=== PATIENT | female | born 1945 | race Caucasian/White ===

== ENCOUNTER → 2017-12-25 | Outpatient (CLI) | payer OTHER | LOC: RAD 06:14 → SPEECH 06:14 → RAD 12:24 | DX: R13.12 Dysphagia, oropharyngeal phase (principal); R13.19 Other dysphagia; K21.9 Gastro-esophageal reflux disease without esophagitis; J30.9 Allergic rhinitis, unspecified; R49.0 Dysphonia; M35.00 Sjogren syndrome, unspecified; R25.1 Tremor, unspecified ==

== ENCOUNTER → 2018-01-07 | Outpatient (CLI) | payer OTHER ==
--- NOTE | ~2018-01-07 | 2DMMODE ---
[facility] [place] [address] 2 D/M-MODE ECHOCARDIOGRAM Name: ZANEFILIBERTO Room #: REG COUNTS INCLUDE 234 BEDS AT THE [facility]#: [id number] Admission: 01/07/18 Attend Phys: Panda Sarkar MD Discharge: Date of : 41 Date of Service: 01/07/18 1336 Report #: [id number] THIS REPORT FOR: //name// APPROVED REPORT Study performed: 01/07/2018 09:57:41 EXAM: Comprehensive 2D, Doppler, and color-flow Echocardiogram Patient Location: Out-Patient Status: routine BSA: 1.67 BP: 134/72 mmHg Rhythm: NSR Other Information Study Quality: Good Indications Dyspnea Palpitations Chest Pain Hx: HLD 2D Dimensions RVDd: 33.42 mm LVEF(%): 64.01 (>50%) IVSd: 11.52 (7-11mm) LVOT Diam: 21.27 (18-24mm) LVDd: 33.68 mm PWd: 10.95 (7-11mm) Ascending Ao: 29.73 (22-36mm) LVDs: 22.26 (25-40mm) Aortic Root: 26.67 mm IVC: 18.00 mm Fernandez's LVEF: 64.01 % Volumes Left Atrial Volume (Systole) Single Plane 4CH: 31.84 mL Single Plane 2CH: 35.72 mL LA ESV Index: 22.00 mL/m2 Aortic Valve AoV Peak [place].: 1.72 m/s AO Peak Gr.: 11.83 mmHg LVOT Max P.47 mmHg LVOT Max V: 1.17 m/s BLANKA Vmax: 2.41 cm2 [facility] [place] [address] 2 D/M-MODE ECHOCARDIOGRAM Name: ZANEFILIBERTO Room #: [facility]#: [id number] Admission: 01/07/18 Attend Phys: Panda Sarkar MD Discharge: Date of : 41 Date of Service: 01/07/18 1336 Report #: [id number] Mitral Valve E/A Ratio: 0.9 MV Decel. Time: 263.28 ms MV E Max [place].: 0.89 m/s MV A [place].: 1.04 m/s MV PHT: 76.35 ms IVRT: 55.36 ms Pulmonary Valve PV Peak [place].: 0.83 m/s PV Peak Gr.: 2.73 mmHg Pulmonary Vein P Vein S: 0.68 m/s P Vein A: 0.31 m/s P Vein D: 0.42 m/s P Vein A Dur.: 133.8 msec P Vein S/D Ratio: 1.62 Tricuspid Valve TR Peak [place].: 2.30 m/s RAP Estimate: 5.00 mmHg TR Peak Gr.: 21.07 mmHg PA Pressure: 26.00 mmHg Left Ventricle The left ventricle is normal size. There is normal LV segmental wall motion. There is normal left ventricular wall thickness. The left ventricular systolic function is normal. The left ventricular ejection fraction is within the normal range. LVEF is 55-60%. Mild diastolic dysfunction is present (impaired relaxation pattern). Right Ventricle The right ventricle is normal size. The right ventricular systolic function is normal. Atria The left atrium size is normal. Right atrium is at the upper limits of normal. Aortic Valve Aortic valve is trileaflet. Round 1.0cm mass adherent to non-coronary cusp leaflet, primarily on aortic side of valve. Differential considerations include myxoma, papillary fibroma, fibroma, or vegetation. No aortic regurgitation is present. There is no aortic valvular stenosis. Mitral Valve Mild mitral annular calcification. Trace mitral regurgitation. No [facility] [address] [place] [address] 2 D/M-MODE ECHOCARDIOGRAM Name: FILIBERTO DEGROOT Room #: REG CL [facility]#: [id number] Admission: 01/07/18 Attend Phys: Panda Sarkar MD Discharge: Date of : 41 Date of Service: 01/07/18 1336 Report #: [id number] evidence of mitral valve stenosis. Tricuspid Valve The tricuspid valve is normal in structure. Mild tricuspid regurgitation. Estimated PAP 26 mmHg. Pulmonic Valve The pulmonary valve is normal in structure. Mild pulmonic regurgitation. Great Vessels The aortic root is normal in size. The ascending aorta is normal in size. IVC is normal in size and collapses >50% with inspiration. Pericardium There is no pericardial effusion. Critical Notification Physician Notified <Conclusion> The left ventricular systolic function is normal. LVEF is 55-60%. Mild diastolic dysfunction Aortic valve is trileaflet. Round 1.0cm mass adherent to non-coronary cusp leaflet, primarily on aorta side of valve. Differential considerations include myxoma, papillary fibroma, fibroma, or vegetation. No aortic regurgitation or stenosis. Mild mitral annular calcification. Trace mitral regurgitation. Mild tricuspid regurgitation. Estimated pulmonary artery pressure of 26 mmHg. There is no pericardial effusion. <ELECTRONICALLY SIGNED> By: Elvis Garcia MD, FACC 01/07/18 1336 35 133 Elvis Garcia MD, FACC /INF
== END ==
LOC: NUC 07:47
DX: R06.00 Dyspnea, unspecified (principal)

== ENCOUNTER → 2018-10-19 | Outpatient (CLI) | payer OTHER ==
--- NOTE | 2018-10-19 10:12 | 2DMMODE ---
[facility] [place] [address] 2 D/M-MODE ECHOCARDIOGRAM Name: FILIBERTO DEGROOT Room #: REG [facility]#: [id number] ������������� Admission: 10/19/18 ������������� Attend Phys: Panda Sarkar MD Discharge: ��� ������������� ��� Date of : 41 Date of Service: 10/19/18 1012 �� Report #: [id number] �������� ��������������������������������������������[id number] THIS REPORT FOR: //name// APPROVED REPORT Study performed: 10/19/2018 09:18:53 EXAM: Comprehensive 2D, Doppler, and color-flow Echocardiogram Patient Location: Out-Patient Status: routine BSA: 1.64 HR: 53 bpm BP: 156/86 mmHg Rhythm: NSR Other Information Study Quality: Good Indications Palpitations. Hx: AVR 01/2018. 2D Dimensions RVDd: 28.44 mm IVSd: 8.95 (7-11mm) LVDd: 43.05 mm PWd: 8.54 (7-11mm) Ascending Ao: 30.37 (22-36mm) LVDs: 26.97 (25-40mm) Aortic Root: 28.41 mm Volumes Left Atrial Volume (Systole) Single Plane 4CH: 38.89 mL Single Plane 2CH: 42.44 mL LA ESV Index: 26.00 mL/m2 Aortic Valve AoV Peak [place].: 2.94 m/s AO Peak Gr.: 34.53 mmHg LVOT Max P.93 mmHg AO Mean Gr.: 19.83 mmHg AO V2 Mean: 2.13 m/s LVOT Max V: 1.22 m/s AO V2 VTI: 71.67 cm Mitral Valve E/A Ratio: 1.1 MV Decel. Time: 240.99 ms [facility] [place] [address] [place] [address] 2 D/M-MODE ECHOCARDIOGRAM Name: FILIBERTO DEGROOT Room #: REG [facility]#: [id number] ������������� Admission: 10/19/18 ������������� Attend Phys: Panda Sarkar MD Discharge: ��� ������������� ��� Date of : 41 Date of Service: 10/19/18 1012 �� Report #: [id number] �������� ��������������������������������������������[id number] MV E Max [place].: 1.00 m/s MV A [place].: 0.87 m/s MV PHT: 69.89 ms IVRT: 83.04 ms Pulmonary Valve PV Peak [place].: 0.90 m/s PV Peak Gr.: 3.22 mmHg Pulmonary Vein P Vein S: 0.80 m/s P Vein A: 0.36 m/s P Vein D: 0.57 m/s P Vein A Dur.: 147.6 msec P Vein S/D Ratio: 1.40 Tricuspid Valve TR Peak [place].: 2.00 m/s RAP Estimate: 5.00 mmHg TR Peak Gr.: 16.00 mmHg PA Pressure: 21.00 mmHg Left Ventricle The left ventricle is normal size. There is normal LV segmental wall motion. There is normal left ventricular wall thickness. Left ventricular systolic function is normal. LVEF is 65%. Moderate diastolic dysfunction is present (pseudonormal filling). Right Ventricle The right ventricle is normal size. The right ventricular systolic function is normal. Atria The left atrium size is normal. The right atrium size is normal. Aortic Valve #21 [employer] bioprosthetic aortic valve is present. Peak pressure gradient of 35mmHg and a mean gradient of 20mmHg. Trace aortic regurgitation. Mitral Valve The mitral valve is normal in structure. Mild mitral annular calcification. There is no mitral valve regurgitation noted. No evidence of mitral valve stenosis. Tricuspid Valve The tricuspid valve is normal in structure. Mild tricuspid regurgitation. Estimated PAP is 20-25mmHg. [address] [address] 2 D/M-MODE ECHOCARDIOGRAM Name: FILIBERTO DEGROOT Room #: REG CL [facility]#: [id number] ������������� Admission: 10/19/18 ������������� Attend Phys: Panda Sarkar MD Discharge: ��� ������������� ��� Date of : 41 Date of Service: 10/19/18 1012 �� Report #: [id number] �������� ��������������������������������������������[id number] Pulmonic Valve The pulmonary valve is normal in structure. Mild pulmonic regurgitation. Great Vessels The aortic root is normal in size. The ascending aorta is normal in size. IVC is normal in size and collapses >50% with inspiration. Pericardium There is no pericardial effusion. <Conclusion> The left ventricle is normal size. There is normal left ventricular wall thickness. Left ventricular systolic function is normal. Moderate diastolic dysfunction is present (pseudonormal filling). The right ventricle is normal size. The left atrium size is normal. #21 [employer] bioprosthetic aortic valve is present. Peak pressure gradient of 35mmHg and a mean gradient of 20mmHg. Trace aortic regurgitation. Mild mitral annular calcification. There is no mitral valve regurgitation noted. Mild tricuspid regurgitation. Estimated PAP is 20-25mmHg. ��������������������������������������������� <ELECTRONICALLY SIGNED> ���������������������������������������� By: Panda Sarkar MD ��������������������������������������������� 10/19/18 1012 1012 1012 Panda Sarkar MD /INF
== END ==
LOC: CV 08:50
DX: I07.1 Rheumatic tricuspid insufficiency (principal); Z88.5 Allergy status to narcotic agent; Z88.8 Allergy status to other drugs, medicaments and biological substances

== ENCOUNTER → 2019-01-22 | Outpatient (CLI) | payer OTHER | LOC: ULTRA 12:00 | DX: R60.0 Localized edema (principal); M79.602 Pain in left arm ==

== ENCOUNTER → 2019-08-12 | Outpatient (CLI) | payer OTHER | LOC: NUC 10:08 | DX: R07.89 Other chest pain (principal); R55 Syncope and collapse; I73.9 Peripheral vascular disease, unspecified; E78.00 Pure hypercholesterolemia, unspecified; Z88.8 Allergy status to other drugs, medicaments and biological substances; Z79.82 Long term (current) use of aspirin ==

== ENCOUNTER → 2019-09-22 | Outpatient (CLI) | payer OTHER | LOC: RAD 09:29 | DX: K31.7 Polyp of stomach and duodenum (principal); K21.9 Gastro-esophageal reflux disease without esophagitis; K85.90 Acute pancreatitis without necrosis or infection, unspecified ==

== ENCOUNTER → 2019-10-26 | Outpatient (CLI) | payer OTHER | LOC: SJCVCIMAG 09:20 | DX: I45.10 Unspecified right bundle-branch block (principal); I37.1 Nonrheumatic pulmonary valve insufficiency; I10 Essential (primary) hypertension; E78.00 Pure hypercholesterolemia, unspecified; K21.9 Gastro-esophageal reflux disease without esophagitis; Z95.2 Presence of prosthetic heart valve; Z86.73 Personal history of transient ischemic attack (TIA), and cerebral infarction without residual deficits; Z79.82 Long term (current) use of aspirin; Z79.899 Other long term (current) drug therapy; Z88.5 Allergy status to narcotic agent; Z88.8 Allergy status to other drugs, medicaments and biological substances ==

== ENCOUNTER → 2020-02-15 | Outpatient (CLI) | payer OTHER | LOC: SJCVCIMAG 10:39 | PROVIDERS: ATTEND Internal Medicine Cardiovascular Disease | DX: I45.10 Unspecified right bundle-branch block (principal); I49.49 Other premature depolarization; I10 Essential (primary) hypertension; E78.00 Pure hypercholesterolemia, unspecified; K21.9 Gastro-esophageal reflux disease without esophagitis; Z95.2 Presence of prosthetic heart valve; Z90.49 Acquired absence of other specified parts of digestive tract; Z90.710 Acquired absence of both cervix and uterus; Z79.899 Other long term (current) drug therapy ==

== ENCOUNTER → 2020-08-29 | Outpatient (CLI) | payer OTHER | LOC: SJCVC 14:59 | PROVIDERS: ATTEND Internal Medicine Cardiovascular Disease | DX: I45.10 Unspecified right bundle-branch block (principal); I48.91 Unspecified atrial fibrillation; K21.9 Gastro-esophageal reflux disease without esophagitis; E78.00 Pure hypercholesterolemia, unspecified; R00.1 Bradycardia, unspecified; I10 Essential (primary) hypertension; R60.9 Edema, unspecified; Z79.82 Long term (current) use of aspirin; Z79.899 Other long term (current) drug therapy; Z86.73 Personal history of transient ischemic attack (TIA), and cerebral infarction without residual deficits; Z95.2 Presence of prosthetic heart valve; Z88.5 Allergy status to narcotic agent; Z88.8 Allergy status to other drugs, medicaments and biological substances ==

== ENCOUNTER → 2021-02-22 | Outpatient (CLI) | payer OTHER | LOC: SPEC 08:32 → SJCVCIMAG 09:56 | PROVIDERS: ATTEND Internal Medicine Cardiovascular Disease | DX: I45.10 Unspecified right bundle-branch block (principal); R00.1 Bradycardia, unspecified; E78.00 Pure hypercholesterolemia, unspecified; R60.9 Edema, unspecified; I10 Essential (primary) hypertension; K21.9 Gastro-esophageal reflux disease without esophagitis; Z90.49 Acquired absence of other specified parts of digestive tract; Z90.710 Acquired absence of both cervix and uterus; Z95.2 Presence of prosthetic heart valve; Z88.5 Allergy status to narcotic agent; Z88.8 Allergy status to other drugs, medicaments and biological substances; Z79.82 Long term (current) use of aspirin; Z79.899 Other long term (current) drug therapy; Z86.73 Personal history of transient ischemic attack (TIA), and cerebral infarction without residual deficits; Z82.49 Family history of ischemic heart disease and other diseases of the circulatory system ==

== ENCOUNTER → 2021-07-31 | Outpatient (CLI) | payer OTHER | LOC: SJCVC 13:57 | PROVIDERS: ATTEND Internal Medicine Cardiovascular Disease | DX: I45.10 Unspecified right bundle-branch block (principal); R60.9 Edema, unspecified; I10 Essential (primary) hypertension; R06.00 Dyspnea, unspecified; I48.91 Unspecified atrial fibrillation; K21.9 Gastro-esophageal reflux disease without esophagitis; R53.83 Other fatigue; E78.00 Pure hypercholesterolemia, unspecified; R00.1 Bradycardia, unspecified; Z88.8 Allergy status to other drugs, medicaments and biological substances; Z79.82 Long term (current) use of aspirin; Z79.899 Other long term (current) drug therapy; Z82.49 Family history of ischemic heart disease and other diseases of the circulatory system ==

== ENCOUNTER → 2021-08-07 | Outpatient (CLI) | payer OTHER ==
--- NOTE | 2021-08-07 15:09 | 2DMMODE ---
[facility] [place] [address] 2 D/M-MODE ECHOCARDIOGRAM Name: FILIBERTO DEGROOT Room #: REG [facility]#: [id number] Admission: 08/07/21 Attend Phys: Panda Sarkar MD Discharge: Date of : 41 Report #: [id number] THIS REPORT FOR: cc: Amparo Lopez MD, Michelle R. MD Park, Jin S. MD ~ APPROVED REPORT Study performed: 08/07/2021 14:01:12 EXAM: Comprehensive 2D, Doppler, and color-flow Echocardiogram Patient Location: Out-Patient Room #: 1 Status: routine BSA: 1.75 HR: 55 bpm BP: 124/72 mmHg Rhythm: Bradycardia Other Information Study Quality: Good Indications Dyspnea AVR 2D Dimensions RVDd: 34.76 mm IVSd: 9.07 (7-11mm) LVOT Diam: 18.84 (18-24mm) LVDd: 41.90 mm PWd: 8.85 (7-11mm) Ascending Ao: 23.94 (22-36mm) LVDs: 25.66 (25-40mm) Left Atrium: 36.95 (27-40mm) Aortic Root: 26.23 mm IVC: 16.00 mm Volumes Left Atrial Volume (Systole) Single Plane 4CH: 49.38 mL Single Plane 2CH: 52.00 mL LA ESV Index: 32.00 mL/m2 Aortic Valve AoV Peak [place].: 3.30 m/s AO Peak Gr.: 43.53 mmHg LVOT Max P.52 mmHg AO Mean Gr.: 21.14 mmHg LVOT Mean P.64 mmHg [facility] [address] [place] [address] 2 D/M-MODE ECHOCARDIOGRAM Name: FILIBERTO DEGROOT Room #: REG CL [facility]#: [id number] Admission: 08/07/21 Attend Phys: Panda Sarkar MD Discharge: Date of : 41 Report #: [id number] AO V2 Mean: 2.18 m/s LVOT Max V: 1.17 m/s AO V2 VTI: 80.29 cm LVOT Mean V: 0.74 m/s BLANKA (VTI): 1.04 cm2 LVOT V1 VTI: 29.98 cm BLANKA Vmax: 0.99 cm2 SV (LVOT): 83.57 mL Mitral Valve E/A Ratio: 1.2 MV Decel. Time: 189.31 ms MV E Max [place].: 1.27 m/s MV A [place].: 1.08 m/s MV PHT: 54.90 ms IVRT: 92.27 ms Pulmonary Valve PV Peak [place].: 1.23 m/s PV Peak Gr.: 6.09 mmHg Pulmonary Vein P Vein S: 0.74 m/s P Vein A: 0.25 m/s P Vein D: 0.57 m/s P Vein A Dur.: 120.0 msec P Vein S/D Ratio: 1.30 Tricuspid Valve TR Peak [place].: 2.51 m/s TR Peak Gr.: 25.26 mmHg PA Pressure: 30.00 mmHg Left Ventricle The left ventricle is normal size. There is normal LV segmental wall motion. There is normal left ventricular wall thickness. The left ventricular systolic function is normal. The left ventricular ejection fraction is within the normal range. LVEF is 60-65%. Grade II - pseudonormal filling dynamics. Right Ventricle The right ventricle is normal size. The right ventricular systolic function is normal. Atria The left atrium size is normal. The right atrium size is normal. Aortic Valve Bioprosthetic #21 aortic valve is present. Peak gradient 37mmHg, mean gradient 18mmHg. No aortic regurgitation is present. [address] [address] 2 D/M-MODE ECHOCARDIOGRAM Name: FILIBERTO DEGROOT Room #: REG CL [facility]#: [id number] Admission: 08/07/21 Attend Phys: Panda Sarkar MD Discharge: Date of : 41 Report #: [id number] Mitral Valve The mitral valve is normal in structure. Trace mitral regurgitation. Tricuspid Valve The tricuspid valve is normal in structure. There is trace to mild tricuspid regurgitation. Estimated PAP 30 mmHg. Pulmonic Valve The pulmonary valve is normal in structure. There is no pulmonic valvular regurgitation. Great Vessels The aortic root is normal in size. IVC is normal in size and collapses >50% with inspiration. Pericardium There is no pericardial effusion. <Conclusion> The left ventricle is normal size. There is normal left ventricular wall thickness. The left ventricular systolic function is normal. Grade II - pseudonormal filling dynamics. The right ventricle is normal size. The left atrium size is normal. Bioprosthetic #21 aortic valve is present. Peak gradient 37mmHg, mean gradient 18mmHg. Trace mitral regurgitation. There is trace to mild tricuspid regurgitation. Estimated PAP 30 mmHg. <ELECTRONICALLY SIGNED> By: Panda Sarkar MD 08/07/21 1509 1509 1509 Panda Sarkar MD /INF
== END ==
LOC: CV 09:59
PROVIDERS: ATTEND Internal Medicine Cardiovascular Disease
DX: I07.1 Rheumatic tricuspid insufficiency (principal); R60.9 Edema, unspecified

== ENCOUNTER → 2021-08-07 | Outpatient (CLI) | payer OTHER | LOC: SJCVCIMAG | PROVIDERS: ATTEND Internal Medicine Cardiovascular Disease | DX: I45.10 Unspecified right bundle-branch block (principal); I10 Essential (primary) hypertension; R60.9 Edema, unspecified; E78.00 Pure hypercholesterolemia, unspecified; Z95.2 Presence of prosthetic heart valve; Z88.5 Allergy status to narcotic agent; Z88.8 Allergy status to other drugs, medicaments and biological substances; Z79.82 Long term (current) use of aspirin; Z79.899 Other long term (current) drug therapy; Z95.4 Presence of other heart-valve replacement; Z82.49 Family history of ischemic heart disease and other diseases of the circulatory system ==